=== PATIENT | male | born 1940 | race Caucasian/White ===

== ENCOUNTER 2018-03-07 22:47 | Observation (INO) | payer OTHER, MEDICARE ==
[2018-03-07 23:24] LABS: Absolute Lymphocytes (CBC) 2.5 K/uL (0.7-4.9); Absolute Monocytes 0.9 K/uL (0.1-1.3); Absolute Neutrophil 4.6 K/uL (1.8-8.0); Basophils % 0.9 % (0-1.3); Eosinophils % 5.6 % (0-4.4); Hematocrit 39.6 % (39.6-49.0); Lymphocytes % 29.2 % (15.3-44.8); MCH 29.5 pg (27.0-35.0); MCV 87.9 fL (80-100); Monocytes % 10.8 % (3.3-12.3); RBC Red Blood Cell Count 4.51 M/uL (4.33-5.43)
[2018-03-07 23:42] LABS: Protime INR 1.06
[2018-03-07 23:53] LABS: ALT/SGPT 38 U/L (12-78); AST/SGOT 22 U/L (15-37); Albumin 3.8 g/dL (3.4-5.0); Alkaline Phosphatase 49 U/L (45-117); BUN Blood Urea Nitrogen 17 mg/dL (7-18); Bicarbonate 26 mmol/L (21-32); Bilirubin Direct 0.2 mg/dL (0-0.2); Bilirubin Total 0.5 mg/dL (0.2-1.0); Glucose Level 87 mg/dL (74-106); Lipase 279 U/L (73-393); NT PRO-BNP 151 pg/mL (<450); Potassium 4.1 mmol/L (3.5-5.1); Protein, Total 7.5 g/dL (6.4-8.2); Sodium Level 140 mmol/L (136-145); Troponin (Emerg Dept Use Only) < 0.02 ng/mL (0.0-0.045)
[2018-03-08 00:33] LABS: Urine Blood NEGATIVE (NEG); Urine Glucose NEGATIVE (NEG); Urine Protein NEGATIVE (NEG); Urine Specific Gravity <1.005 (1.005-1.030)
--- NOTE | 2018-03-08 00:52 | EDPHYS ---
Physician Documentation [facility] Name: Johnathan Lopez Age: 77 yrs Sex: Male : 1940 Arrival Date: 03/07/2018 Time: 22:54 Bed 5 Private MD: ED Physician Bennett Corado HPI: 03/08 00:46 This 77 yrs old Male presents to ER via EMS with complaints of Chest Pain. huyen 00:46 The patient or guardian reports chest pain that is located primarily in the substernal huyen area, anterior chest wall. Onset: 2 day(s) ago. The pain does not radiate. Associated signs and symptoms: The patient has no apparent associated signs or symptoms. The chest pain is described as a pressure, sharp. Modifying factors: The symptoms are alleviated by nothing. the symptoms are aggravated by nothing. Severity of pain: At its worst the pain was mild moderate in the emergency department the pain has resolved and did so just prior to arrival. The patient has experienced similar episodes in the past, several times. Historical: - Allergies: 03/07 23:00 No Known Allergies; ak1 - Home Meds: 23:16 clonidine HCl 0.3 mg Oral tab 1 tab 2 times per day [Active]; minoxidil 2.5 mg Oral tab ak1 2 tabs 2 times per day [Active]; irbesartan 300 mg oral tab 1 tab once daily [Active]; Bystolic 20 mg oral tab 1 tab twice daily [Active]; fenofibrate oral 145mg oral once daily [Active]; atorvastatin 40 mg oral tab 1 tab once daily [Active]; prasugrel oral 10mg oral once daily [Active]; Januvia 100 mg oral tab 1 tab once daily [Active]; glimepiride 4 mg Oral tab twice daily [Active]; metformin 1,000 mg Oral tab 1 tab 2 times per day [Active]; aspirin 81 mg Oral chew 1 tab once daily [Active]; nitroglycerin 0.4 mg SL subl prn [Active]; omeprazole 40 mg Oral cpDR 1 cap once daily [Active]; - PMHx: 23:16 Diabetes - NIDDM; Hyperlipidemia; Hypertension; CVA; CAD; ak1 - PSHx: 23:16 Heart stents; Hernia repair; bilateral shoulder sx; Cholecystectomy; ak1 - Immunization history:: Adult Immunizations unknown. - Social history:: Smoking status: unknown. - Ebola Screening: : No symptoms or risks identified at this time. - Family history:: not pertinent. ROS: 03/08 00:46 Constitutional: Negative for fever, chills, and weight loss, Eyes: Negative for injury, huyen pain, redness, and discharge, ENT: Negative for injury, pain, and discharge, Neck: Negative for injury, pain, and swelling, Respiratory: Negative for shortness of breath, cough, wheezing, and pleuritic chest pain, Abdomen/GI: Negative for abdominal pain, nausea, vomiting, diarrhea, and constipation, Back: Negative for injury and pain, : Negative for injury, bleeding, discharge, and swelling, MS/Extremity: Negative for injury and deformity, Skin: Negative for injury, rash, and discoloration, Neuro: Negative for headache, weakness, numbness, tingling, and seizure, Psych: Negative for depression, anxiety, suicide ideation, homicidal ideation, and hallucinations, Allergy/Immunology: Negative for hives, rash, and allergies, Endocrine: Negative for neck swelling, polydipsia, polyuria, polyphagia, and marked weight changes, Hematologic/Lymphatic: Negative for swollen nodes, abnormal bleeding, and unusual bruising. Cardiovascular: Positive for chest pain, of the chest. Exam: 00:46 Constitutional: This is a well developed, well nourished patient who is awake, alert, huyen and in no acute distress. Head/Face: Normocephalic, atraumatic. Eyes: Pupils equal round and reactive to light, extra-ocular motions intact. Lids and lashes normal. Conjunctiva and sclera are non-icteric and not injected. Cornea within normal limits. Periorbital areas with no swelling, redness, or edema. ENT: Nares patent. No nasal discharge, no septal abnormalities noted. Tympanic membranes are normal and external auditory canals are clear. Oropharynx with no redness, swelling, or masses, exudates, or evidence of obstruction, uvula midline. Mucous membranes moist. Neck: Trachea midline, no thyromegaly or masses palpated, and no cervical lymphadenopathy. Supple, full range of motion without nuchal rigidity, or vertebral point tenderness. No Meningismus. Chest/axilla: Normal chest wall appearance and motion. Nontender with no deformity. No lesions are appreciated. Cardiovascular: Regular rate and rhythm with a normal S1 and S2. No gallops, murmurs, or rubs. Normal PMI, no JVD. No pulse deficits. Respiratory: Lungs have equal breath sounds bilaterally, clear to auscultation and percussion. No rales, rhonchi or wheezes noted. No increased work of breathing, no retractions or nasal flaring. Abdomen/GI: Soft, non-tender, with normal bowel sounds. No distension or tympany. No guarding or rebound. No evidence of tenderness throughout. Back: No spinal tenderness. No costovertebral tenderness. Full range of motion. Male : Normal genitalia with no discharge or lesions. Skin: Warm, dry with normal turgor. Normal color with no rashes, no lesions, and no evidence of cellulitis. MS/ Extremity: Pulses equal, no cyanosis. Neurovascular intact. Full, normal range of motion. Neuro: Awake and alert, GCS 15, oriented to person, place, time, and situation. Cranial nerves II-XII grossly intact. Motor strength 5/5 in all extremities. Sensory grossly intact. Cerebellar exam normal. Normal gait. Psych: Awake, alert, with orientation to person, place and time. Behavior, mood, and affect are within normal limits. Vital Signs: 03/07 23:00 BP 154 / 71; Pulse 64; Resp 19; Temp 98.6(O); Pulse Ox 96% on R/A; Weight 113.4 kg (R); ak1 Height 5 ft. 11 in. (180.34 cm) (R); Pain 0/10; 23:17 BP 135 / 70; Pulse 61; Resp 18; Pulse Ox 96% on R/A; ak1 23:51 BP 143 / 75; Pulse 61; Resp 18; Pulse Ox 96% on R/A; ak1 23:00 Body Mass Index 34.87 (113.40 kg, 180.34 cm) [facility] MDM: 22:56 Patient medically screened. [facility] 03/08 00:50 Data reviewed: vital signs, nurses notes, lab test result(s), EKG, radiologic studies, [facility] CT scan, plain films. 03/07 22:54 Order name: Basic Metabolic Panel; Complete Time: 00:45 [facility] 03/07 22:54 Order name: CBC with Diff; Complete Time: 00:45 [facility] 03/07 22:54 Order name: LFT's; Complete Time: 00:45 ak1 03/07 22:54 Order name: Magnesium; Complete Time: 00:45 ak1 03/07 22:54 Order name: NT PRO-BNP; Complete Time: 00:45 ak1 03/07 22:54 Order name: PT-INR; Complete Time: 00:45 ak1 03/07 22:54 Order name: Troponin (emerg Dept Use Only); Complete Time: 00:45 ak1 03/07 23:04 Order name: Lipase; Complete Time: 00:45 EDMS 03/08 00:25 Order name: Urine Dipstick--Ancillary (enter results); Complete Time: 00:45 [facility] 03/08 00:58 Order name: Basic Metabolic Panel EDPA 03/08 00:58 Order name: Basic Metabolic Panel EDPA 03/08 00:58 Order name: CBC with Automated Diff EDMS 03/08 00:58 Order name: CBC with Automated Diff EDPA 03/07 22:54 Order name: XRAY Chest (1 view) ak 03/07 22:54 Order name: EKG; Complete Time: 22:55 ak1 03/08 00:58 Order name: CONS Physician Consult EDPA 03/08 00:58 Order name: CONS Physician Consult EDPA 03/08 00:58 Order name: Consistent Carb (ADA) 1800 Fly EDMS 03/08 00:58 Order name: EKG Electrocardiogram EDPA 03/08 00:58 Order name: EKG Electrocardiogram EDPA 03/08 00:58 Order name: EKG Electrocardiogram EDPA 03/08 00:58 Order name: EKG Electrocardiogram EDPA 03/08 00:58 Order name: Troponin I EDPA 03/08 00:58 Order name: Troponin I EDPA 03/08 00:58 Order name: Troponin I EDPA 03/08 00:58 Order name: Chest Single View EDMS 03/08 00:58 Order name: Chest Single View EDPA 03/07 22:54 Order name: Cardiac monitoring; Complete Time: 22:55 ak1 03/07 22:54 Order name: EKG - Nurse/Tech; Complete Time: 22:56 ak1 03/07 22:54 Order name: IV Saline Lock; Complete Time: 22:55 ak1 03/07 22:54 Order name: Labs collected and sent; Complete Time: 23:21 ak 03/07 22:54 Order name: O2 Per Protocol; Complete Time: 23:22 ak1 03/07 22:54 Order name: O2 Sat Monitoring; Complete Time: 23: ak1 03/07 22:56 Order name: Urine Dipstick-Ancillary (obtain specimen); Complete Time: 00:21 huyen Administered Medications: 00:55 Drug: Lovenox 1 mg/kg Route: Sub-Q; Site: right lower abdomen; ak1 01:05 Follow up: Response: No adverse reaction ak1 00:55 Drug: Pepcid 20 mg Route: IVP; Site: right antecubital; ak1 01:06 Follow up: Response: No adverse reaction ak1 Disposition: 03/08/18 00:52 Hospitalization ordered by Baljit Manrique for Observation. Preliminary diagnosis are Other chest pain, Type 2 diabetes mellitus. - Bed requested for Telemetry/MedSurg (observation). - Status is Observation. ak1 - Condition is Stable. - Problem is new. - Symptoms have improved. UTI on Admission? No Signatures: [facility] Antonella Baptiste RN RN mw Anderson, Corey, MD MD cha Krenek, Amber RN RN ak1 Corrections: (The following items were deleted from the chart) 03/07 23:03 22:57 LIPASE+C.LAB.BRZ ordered. [facility] 03/08 01:00 00:52 Hospitalization Ordered by Baljit Manrique MD for Observation. Preliminary diagnosis mw is Other chest pain; Type 2 diabetes mellitus. Bed requested for Telemetry/MedSurg (observation). Status is Observation. Condition is Stable. Problem is new. Symptoms have improved. UTI on Admission? No. huyen 01:50 01:00 03/08/2018 00:52 Hospitalization Ordered by Baljit Manrique MD for Observation. ak1 Preliminary diagnosis is Other chest pain; Type 2 diabetes mellitus. Bed requested for Telemetry/MedSurg (observation). Status is Observation. Condition is Stable. Problem is new. Symptoms have improved. UTI on Admission? No. mw
--- NOTE | 2018-03-08 00:52 | ER ---
Nurse's Notes [facility] Name: Johnathan Lopez Age: 77 yrs Sex: Male : 1940 Arrival Date: 03/07/2018 Time: 22:54 Bed 5 Private MD: Diagnosis: Other chest pain;Type 2 diabetes mellitus Presentation: 03/07 22:56 Presenting complaint: EMS states: pt with chest pain, center of chest. pt took 2 0.4 ak1 nitro prior to EMS arrival. pt given 324mg Asprin in route. pt denies pain at this time. pt sees. Dr. Dozier at [facility]. [facility]SB[facility] 107. Transition of care: patient was not received from another setting of care. Onset of symptoms was March 07, 2018. Risk Assessment: Do you want to hurt yourself or someone else? Patient reports no desire to harm self or others. Initial Sepsis Screen: Does the patient meet any 2 criteria? No. Patient's initial sepsis screen is negative. Does the patient have a suspected source of infection? No. Patient's initial sepsis screen is negative. Care prior to arrival: None. 22:56 Method Of Arrival: EMS: [facility] ak1 22:56 Acuity: MICHELLE 3 ak1 Historical: - Allergies: 23:00 No Known Allergies; ak1 - Home Meds: 23:16 clonidine HCl 0.3 mg Oral tab 1 tab 2 times per day [Active]; minoxidil 2.5 mg Oral tab ak1 2 tabs 2 times per day [Active]; irbesartan 300 mg oral tab 1 tab once daily [Active]; Bystolic 20 mg oral tab 1 tab twice daily [Active]; fenofibrate oral 145mg oral once daily [Active]; atorvastatin 40 mg oral tab 1 tab once daily [Active]; prasugrel oral 10mg oral once daily [Active]; Januvia 100 mg oral tab 1 tab once daily [Active]; glimepiride 4 mg Oral tab twice daily [Active]; metformin 1,000 mg Oral tab 1 tab 2 times per day [Active]; aspirin 81 mg Oral chew 1 tab once daily [Active]; nitroglycerin 0.4 mg SL subl prn [Active]; omeprazole 40 mg Oral cpDR 1 cap once daily [Active]; - PMHx: 23:16 Diabetes - NIDDM; Hyperlipidemia; Hypertension; CVA; CAD; ak1 - PSHx: 23:16 Heart stents; Hernia repair; bilateral shoulder sx; Cholecystectomy; ak1 - Immunization history:: Adult Immunizations unknown. - Social history:: Smoking status: unknown. - Ebola Screening: : No symptoms or risks identified at this time. - Family history:: not pertinent. Screenin:01 Abuse screen: Denies threats or abuse. Denies injuries from another. Nutritional ak1 screening: No deficits noted. Tuberculosis screening: No symptoms or risk factors identified. Fall Risk None identified. Assessment: 23:07 General: Appears in no apparent distress. Behavior is calm, cooperative. Pain: Pain ak1 does not radiate. Pain began 2 hours ago. Pain:. Neuro: No deficits noted. Cardiovascular: Reports chest pain, Rhythm is regular. Respiratory: No deficits noted. GI: No signs and/or symptoms were reported involving the gastrointestinal system. : No signs and/or symptoms were reported regarding the genitourinary system. EENT: No signs and/or symptoms were reported regarding the EENT system. Derm: No signs and/or symptoms reported regarding the dermatologic system. Musculoskeletal: No signs and/or symptoms reported regarding the musculoskeletal system. 23:49 Reassessment: Patient appears in no apparent distress at this time. No changes from ak1 previously documented assessment. Patient and/or family updated on plan of care and expected duration. Pain level reassessed. Patient is alert, oriented x 3, equal unlabored respirations, skin warm/dry/pink. Patient states symptoms have improved. 03/08 00:45 Reassessment: Dr. Corado at bedside to inform pt of need for admission. will continue ak1 to monitor. 01:13 Reassessment: pt wishes to take his own home medications. pt and family understand that ak1 the PCP will have to write an order in the morning for pt to take his own home medications. . Vital Signs: 03/07 23:00 BP 154 / 71; Pulse 64; Resp 19; Temp 98.6(O); Pulse Ox 96% on R/A; Weight 113.4 kg (R); ak1 Height 5 ft. 11 in. (180.34 cm) (R); Pain 0/10; 23:17 BP 135 / 70; Pulse 61; Resp 18; Pulse Ox 96% on R/A; ak1 23:51 BP 143 / 75; Pulse 61; Resp 18; Pulse Ox 96% on R/A; ak1 23:00 Body Mass Index 34.87 (113.40 kg, 180.34 cm) ak1 ED Course: 22:54 Patient arrived in ED. ak1 22:56 Bennett Corado MD is Attending Physician. huyen 22:59 Triage completed. ak1 23:00 Arm band placed on Patient placed in an exam room, on a stretcher, on teletypesetter monitor, ak1 on pulse oximetry, Patient notified of wait time. EKG completed in triage. Results shown to MD. 23:07 Rae Ontiveros, RN is Primary Nurse. ak1 23:07 Patient has correct armband on for positive identification. Placed in gown. Bed in low ak1 position. Call light in reach. Side rails up X2. Adult w/ patient. compliance monitor on. Pulse ox on. NIBP on. 23:07 Maintain EMS IV. Dressing intact. Good blood return noted. Site clean \T\ dry. Gauge \T\ ak 1 site: 18g right AC. Patient maintains SpO2 saturation greater than 95% on room air. 23:13 X-ray completed. Portable x-ray completed in exam room. Patient tolerated procedure kw well. 23:15 XRAY Chest (1 view) In Process Unspecified. [facility] 03/08 00:51 Baljit Manrique MD is Hospitalizing Provider. [facility] 01:07 No provider procedures requiring assistance completed. Patient admitted, IV remains in ak1 place. Administered Medications: 00:55 Drug: Lovenox 1 mg/kg Route: Sub-Q; Site: right lower abdomen; ak1 01:05 Follow up: Response: No adverse reaction ak1 00:55 Drug: Pepcid 20 mg Route: IVP; Site: right antecubital; ak1 01:06 Follow up: Response: No adverse reaction ak1 Outcome: 00:52 Decision to Hospitalize by Provider. huyen 01:08 Condition: good ak1 01:08 Instructed on the need for admit. 01:24 Admitted to Tele accompanied by tech, via stretcher, room 404, with chart, [facility] Patient left the ED. ak1 Signatures: Dispatcher [employer] EDAL Bennett Corado MD MD cha Whitley, Kimberlee kw Krenek, Rae, RN RN ak1
[2018-03-08] MEDS ORDERED: ONDANSETRON 4 MG/2 ML VIAL IV PRN (00:55)
[2018-03-08] MEDS ORDERED: ACETAMINOPHEN 500 MG TAB PO PRN (00:55)
[2018-03-08] MEDS ORDERED: FAMOTIDINE 20 MG/2 ML VIAL IV ONE (01:01)
[2018-03-08] MEDS ORDERED: ENOXAPARIN 100 MG/ML SYR SQ ONE (01:01)
[2018-03-08 02:38] VITALS: BMI 31.9
[2018-03-08 05:42] VITALS: O2SAT 91
[2018-03-08] MEDS ORDERED: NITROGLYCERIN 0.4 MG/TAB SL PRN (06:55)
--- NOTE | 2018-03-08 08:40 | RAD REPORT ---
EXAM DESCRIPTION: RAD - Chest Single View - 03/07/2018 11:16 pm CLINICAL HISTORY: Chest pain COMPARISON: None. TECHNIQUE: AP portable chest image was obtained 2303 hours . FINDINGS: Lungs are clear. Heart and vasculature are normal. No measurable pleural effusion and no p neumothorax. No gross bony abnormality seen. No acute aortic findings suspected. Small granulomatous calcification in the central chest on the right. IMPRESSION: No acute cardiopulmonary process.
[2018-03-08 08:57] VITALS: BP 129/71
[2018-03-08] MEDS ORDERED: ASPIRIN EC 81 MG TAB PO SCH (09:00)
[2018-03-08] MEDS ORDERED: MINOXIDIL 2.5 MG TAB PO SCH (09:00)
[2018-03-08] MEDS ORDERED: ASPIRIN 81 MG CHEWABLE TABLET PO SCH (09:00)
[2018-03-08] MEDS ORDERED: GLIMEPIRIDE 2 MG TABLET PO SCH (09:00)
[2018-03-08] MEDS ORDERED: METFORMIN ER 500 MG TAB PO SCH (09:00)
[2018-03-08] MEDS ORDERED: CLONIDINE HCL 0.3 MG TAB PO SCH (09:00)
[2018-03-08] MEDS ORDERED: SITAGLIPTIN PHOS 100 MG TAB PO SCH (09:00)
[2018-03-08] MEDS ORDERED: ISOSORBIDE MONO SR 30 MG TAB PO SCH (09:00)
[2018-03-08] MEDS ORDERED: ATORVASTATIN 20 MG TAB PO SCH (09:00)
[2018-03-08] MEDS ORDERED: NEBIVOLOL HCL 20 MG TABLET PO SCH (09:00)
[2018-03-08] MEDS ORDERED: PRASUGREL (EFFIENT) 10 MG TAB PO SCH (09:00)
[2018-03-08] MEDS ORDERED: IRBESARTAN 150 MG TAB PO SCH (09:00)
[2018-03-08] MEDS ORDERED: FENOFIBRATE 160 MG TAB PO SCH (09:00)
[2018-03-08] MEDS ORDERED: ENOXAPARIN 100 MG/ML SYR SQ SCH (09:00)
--- NOTE | 2018-03-08 09:06 | EKG ---
Test Date: 2018-03-07 Test Time: 22:53:09 Calender Supervisor: MICHAEL MEASUREMENT RESULTS: Intervals: Rate: 63 LA: 196 QRSD: 98 QT: 436 QTc: 446 [place]: P: 15 LA: 196 QRS: 54 T: 46 INTERPRETIVE STATEMENTS: Normal sinus rhythm Normal ECG Compared to ECG 10/30/2005 14:05:17 T-wave abnormality no longer present Electronically Signed On 03-08-18 09:06:16 CDT by Aneesh Nicolas
[2018-03-08 09:20] VITALS: TEMP 97
--- NOTE | 2018-03-08 11:56 | CON ---
History Of Present Illness: Mr. Lopez is 77. He has a history of intracoronary stents. In 2002, he had 3 stents placed in his right coronary. In 2014, several stents were placed in his LAD. Since then, he has done well. He is not having chest pain as a rule. Last night, he had chest pain while he was sleeping, went away with nitroglycerin, he took 3 doses. The first one was old and probably had no significant amount of nitroglycerin in it. Since then, he has been free of chest pain. Enzym es are normal. 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 The patient was able to walk around without any difficulty. He reports a drug intolerance to meperidine. Home Medications: Clonidine, sitagliptin, prasugrel, omeprazole, nitroglycerin, nebivolol, minoxidil , metformin, isosorbide mononitrate, irbesartan, glimepiride, fenofibrate, atorvastatin, and aspirin. Past Medical History: He has underlying diabetes, hypertension, and a history of CAD. Physical Examination: Vital Signs: Height 5 feet, 10 inches, weight 222 pounds. Blood pressure 128/65, temperature 97.7, O2 saturation 91% on room air. HEENT: Normal. Lungs: Clear. Carotids, no bruit. Heart: Exam normal. Extremities: Normal. Diagnostic Data: His electrocardiogram does not show acute injury or ischemia. Assessment And Plan: I think the patient should probably have another cardiac cath. Dr. Dozier has b kwadwo contacted. He may want him to come up to [facility] today or early next week and do a heart cath eterization instead. Either way, the patient prefers all this be done at [facility] under the care o f Dr. Dozier where he has had all of his other care. At this point, I think he is stable enough to be discharged home. EUGENE/JAYSON Voice ID: [id number] Report ID: [id number]
[2018-03-09] MEDS ORDERED: PANTOPRAZOLE 40MG TABLET PO SCH (06:30)
== END 2018-03-08 10:45 | disposition home or self-care (01) ==
LOC: ER 22:47 → ERHOLD 03-08 00:53 → 4TH 03-08 01:21
PROVIDERS: ADMIT Internal Medicine; ATTEND Internal Medicine
DX: R07.9 Chest pain, unspecified (principal); E11.9 Type 2 diabetes mellitus without complications; I10 Essential (primary) hypertension; I25.10 Atherosclerotic heart disease of native coronary artery without angina pectoris; Z95.5 Presence of coronary angioplasty implant and graft
CPT/HCPCS: 36415; 71045; 80048; 80076; 81003; 82962; 83690; 83735; 83880; 84484 ×2; 85025; 85610; 93005; 96372; 96374; 99285; G0378 ×2; J1650 ×2